=== PATIENT | female | born 1975 | race Two or more races ===

== ENCOUNTER 2018-11-15 14:15 | Emergency (ER) | payer OTHER ==
[~2018-11-15] VITALS: Ht 170.2 cm; Wt 99.8 kg
[~2018-11-15 14:15] MED LIST: AMOXICILLIN500 M1; CALCIUM1 TAB; FLEXERIL5 MG; GLUCOPHAGE XR500 MG; TRAMADOL HCL50 MG
== END 2018-11-15 17:12 | disposition home or self-care (01) ==
LOC: ER 14:15
DX: I16.0 Hypertensive urgency (principal); I10 Essential (primary) hypertension; M94.0 Chondrocostal junction syndrome [Tietze]

== ENCOUNTER 2022-03-09 15:35 | Emergency (ER) | payer OTHER ==
[~2022-03-09] VITALS: Ht 162.6 cm; Wt 81.6 kg
[2022-03-09] MEDS ORDERED: METFORMIN HCL500 M3 PO (16:21)
[2022-03-09] MEDS ORDERED: PYRIDIUM100 MG PO (19:08)
== END 2022-03-09 20:22 | disposition home or self-care (01) ==
LOC: ER 15:35
DX: N39.0 Urinary tract infection, site not specified (principal); I10 Essential (primary) hypertension

== ENCOUNTER 2025-03-01 12:50 | Outpatient (CLI) | payer OTHER ==
[~2025-03-01 12:50] MED LIST changes: +METFORMIN HCL500 M3 PO; +PYRIDIUM100 MG PO
== END 2025-03-01 12:51 | disposition home or self-care (01) ==
LOC: NUCLEAR 12:50
DX: Z13.820 Encounter for screening for osteoporosis (principal); M81.0 Age-related osteoporosis without current pathological fracture

== ENCOUNTER → 2025-06-21 | Day surgery (SDC) | payer OTHER ==
[~2025-06-21] MED LIST changes: +DIPHENHYDRAMINE HCL 50 MG/ML VIAL 1ML IV ONE; +MIDAZOLAM HCL 2 MG/2 ML VIAL IV ONE; +fentaNYL CITRATE 50 MCG/ML AMPUL IV PUSH ONE
== END | disposition home or self-care (01) ==
LOC: ADM 06-19 14:30 → AMB-ENDOS 07:00
PROVIDERS: ATTEND Internal Medicine
DX: D12.5 Benign neoplasm of sigmoid colon (principal); K63.5 Polyp of colon; R19.5 Other fecal abnormalities; K57.30 Diverticulosis of large intestine without perforation or abscess without bleeding; Z88.8 Allergy status to other drugs, medicaments and biological substances